=== PATIENT | male | born 1965 | race Caucasian/White ===

== ENCOUNTER 2016-10-15 17:54 | Emergency (ER) | payer OTHER ==
[2016-10-15 18:36] LABS: #Basophils 0.1 thou/uL (0.0-0.2); #Eosinphils 0.1 thou/uL (0.0-0.7); #Lymphocytes 2.1 thou/uL (1.20-3.40); #Monocytes 0.7 thou/uL (0.11-0.59); %Basophils 0.8 % (0.0-1.0); %Eosinophils 0.8 % (0.0-10.0); %Lymphocytes 16.1 % (21.0-51.0); %Monocytes 5.2 % (0.0-10.0); %Neutrophils 76.9 % (42.0-75.0); Mean Corpuscular HGB CONC 34.4 g/dL (32.0-36.0); Mean Corpuscular Hemoglobin 30.6 pg (27.0-31.0); Mean Corpuscular Volume 88.9 fl (80.0-94.0); Platelet Count 237 thou/uL (130-400); Red Blood Cell (RBC) Count 5.56 mill/uL (4.70-6.10); White Blood Cell (WBC) Count 12.9 thou/uL (4.8-10.8)
[2016-10-15 18:37] LABS: INR-International Normal Ratio 1.1; Prothrombin Time 14.2 SEC (12.0-14.7)
[2016-10-15 18:47] LABS: ALT (SGPT) 21 U/L (8-55); AST (SGOT) 17 U/L (5-34); Albumin 4.4 g/dL (3.5-5.0); Alkaline Phosphatase 87 U/L (40-150); Anion Gap 16 mmol/L (10-20); BUN (Urea Nitrogen) 11 mg/dL (8.9-20.6); Bilirubin, Total 1.2 mg/dL (0.2-1.2); Calc. Creatinine Clearance 0 mL/min (70-130); Calcium 9.2 mg/dL (7.8-10.44); Carbon Dioxide 22 mmol/L (22-29); Chloride 105 mmol/L (98-107); Estimated GFR-MDRD Greater than 90; Glucose 94 mg/dL (70-105); Potassium 3.7 mmol/L (3.5-5.1); Protein, Total 7.4 g/dL (6.0-8.3); Sodium 139 mmol/L (136-145)
[2016-10-15 18:48] LABS: CKMB 2.8 ng/mL (0-6.6); Troponin I 0.028 ng/mL (< 0.028)
[2016-10-15] MEDS ORDERED: Heparin 5,000 UNITS/ML VIAL ONE (19:03)
[2016-10-15] MEDS ORDERED: Tenecteplase 50 MG - STEMI KIT ONE (19:11)
--- NOTE | 2016-10-15 22:05 | RAD ---
PORTABLE CHEST 10/15/2016 TECHNIQUE/COMPARISON: An AP portable film at 1759 hours is presented with no prior films available for comparison. FINDINGS: The heart is normal in size, and the lungs are clear. No infiltrate, effusion, or vascular congesti on is seen. No mediastinal abnormality is apparent. IMPRESSION: No acute finding. POS: HOME
== END 2016-10-15 18:36 | disposition short-term general hospital (02) ==
LOC: BURERS 17:54
DX: I21.3 ST elevation (STEMI) myocardial infarction of unspecified site (principal); I10 Essential (primary) hypertension; F41.9 Anxiety disorder, unspecified; F32.9 Major depressive disorder, single episode, unspecified; F17.210 Nicotine dependence, cigarettes, uncomplicated
CPT/HCPCS: 71010; 80053; 82553; 83880; 84484; 85025; 85610; 93005; 96365; 96375; 96376; J1644; J2270; J3101

== ENCOUNTER 2019-01-23 12:56 | Emergency (ER) | payer OTHER ==
--- NOTE | 2019-01-23 13:29 | RAD ---
XR Hand Lt 3 View STANDARD History: Pain Comparison: None. Findings: No acute fracture or malalignment. Advanced degenerative disease of the thumb carpometacarp al joint with dorsal subluxation. 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 Impression: Advanced degenerative disease of the thumb carpometacarpal joint with dorsal subluxation and capsular calcifications.
== END 2019-01-23 13:55 | disposition home or self-care (01) ==
LOC: BURERS 12:56
DX: M18.9 Osteoarthritis of first carpometacarpal joint, unspecified (principal); I25.2 Old myocardial infarction; F17.210 Nicotine dependence, cigarettes, uncomplicated
CPT/HCPCS: 29125